=== PATIENT | female | born 1995 | race Hispanic/Latino ===

== ENCOUNTER 2022-10-01 12:20 | Emergency (ER) | payer MEDICAID ==
[2022-10-01] VITALS (12 sets, daily range): BP systolic 113–142; BP diastolic 78–93
[~2022-10-01] VITALS: Ht 165.1 cm; Wt 90.0 kg
[2022-10-01] MEDS ORDERED: FLONASE AL50 MCG/ACT ×2 (17:14→17:44)
[2022-10-01] MEDS ORDERED: CIPRODEX1 ML OT ×3 (17:14→18:35)
== END 2022-10-01 17:57 | disposition home or self-care (01) ==
LOC: ED 12:20
DX: U07.1 COVID-19 (principal); H92.13 Otorrhea, bilateral; R09.81 Nasal congestion